=== PATIENT | female | born 1935 | race Caucasian/White ===

== ENCOUNTER 2018-08-24 21:17 | Emergency (ER) | payer MEDICARE, OTHER ==
[2018-08-24] MEDS: KETOROLAC 15 MG INJ IV (22:06)
[2018-08-24] MEDS: SOD CHLORIDE 0.9% 500 ML IV (22:06)
[2018-08-24 22:16] LABS: ADD MAN DIFF? NO
[2018-08-24 22:17] LABS: WHITE BLOOD COUNT 8.1 10^3/ul (4.8-10.8)
[2018-08-24 22:17] LABS: BASOPHIL # 0.1 10^3/ul (0.0-0.1); BASOPHILS % 0.6 % (0.0-2.0); EOSINOPHILS % 0.5 % (0.0-7.0); HEMATOCRIT 33.5 % (37.0-47.0); HEMOGLOBIN 10.6 g/dl (12.0-16.0); LYMPHOCYTES # 0.8 10^3/ul (0.8-2.9); LYMPHOCYTES % 10.1 % (15.0-51.0); MEAN CORPUSCULAR HEMOGLOBIN 26.6 pg (29.0-33.0); MEAN CORPUSCULAR HGB CONC 31.6 g/dl (32.0-37.0); MEAN CORPUSCULAR VOLUME 84.2 fl (82.0-101.0); MEAN PLATELET VOLUME 10.1 fl (7.4-10.4); MONOCYTE # 0.8 10^3/ul (0.3-0.9); MONOCYTES % 9.8 % (0.0-11.0); NEUTROPHIL # 6.4 10^3/ul (1.6-7.5); NEUTROPHILS % 78.8 % (39.0-77.0); PLATELET COUNT 173 10^3/UL (140-415); RED BLOOD COUNT 3.98 10^6/ul (4.20-5.40); RED CELL DISTRIBUTION WIDTH 14.1 % (11.5-14.5)
[2018-08-24 22:33] LABS: ANION GAP 6 (5-13); BLOOD UREA NITROGEN 25 mg/dl (7-20); CALCIUM 8.7 mg/dl (8.4-10.2); CARBON DIOXIDE 25 mmol/L (21-31); CHLORIDE 98 mmol/L (97-110); CREATININE 1.33 mg/dl (0.44-1.00); GLUCOSE 98 mg/dl (70-220); POTASSIUM 5.7 mmol/L (3.5-5.1); SODIUM 129 mmol/L (135-144)
[2018-08-24] MEDS: FENTAnyl 50 MCG/ML VIAL IV (22:45)
[2018-08-25] MEDS: FENTAnyl 50 MCG/ML VIAL IV (01:32)
[2018-08-25] MEDS: MINERAL OIL 133 ML ENEMA PR (01:32)
== END 2018-08-25 01:55 | disposition home or self-care (01) ==
LOC: E/R 08-25 01:55
DX: R25.2 Cramp and spasm (principal); M79.605 Pain in left leg; E86.0 Dehydration; K59.00 Constipation, unspecified; E87.1 Hypo-osmolality and hyponatremia; E87.5 Hyperkalemia; N17.9 Acute kidney failure, unspecified; I10 Essential (primary) hypertension; Z79.82 Long term (current) use of aspirin
CPT/HCPCS: 36415; 74018; 80048; 85025; 96374; 96375; 96376; 99284-25

== ENCOUNTER 2018-09-30 10:46 | Inpatient (IN) | payer MEDICARE, OTHER ==
[2018-09-30 11:09] LABS: ADD MAN DIFF? NO
[2018-09-30 11:10] LABS: BASOPHIL # 0.1 10^3/ul (0.0-0.1); BASOPHILS % 0.4 % (0.0-2.0); EOSINOPHILS # 0.1 10^3/ul (0.0-0.5); EOSINOPHILS % 0.4 % (0.0-7.0); HEMATOCRIT 39.4 % (37.0-47.0); HEMOGLOBIN 12.7 g/dl (12.0-16.0); LYMPHOCYTES # 2.1 10^3/ul (0.8-2.9); LYMPHOCYTES % 11.6 % (15.0-51.0); MEAN CORPUSCULAR HEMOGLOBIN 26.3 pg (29.0-33.0); MEAN CORPUSCULAR HGB CONC 32.2 g/dl (32.0-37.0); MEAN CORPUSCULAR VOLUME 81.7 fl (82.0-101.0); MEAN PLATELET VOLUME 9.7 fl (7.4-10.4); MONOCYTE # 0.8 10^3/ul (0.3-0.9); MONOCYTES % 4.7 % (0.0-11.0); NEUTROPHIL # 14.8 10^3/ul (1.6-7.5); NEUTROPHILS % 82.1 % (39.0-77.0); PLATELET COUNT 291 10^3/UL (140-415); RED BLOOD COUNT 4.82 10^6/ul (4.20-5.40); RED CELL DISTRIBUTION WIDTH 13.6 % (11.5-14.5)
[2018-09-30 11:10] LABS: WHITE BLOOD COUNT 18.1 10^3/ul (4.8-10.8)
[2018-09-30] MEDS: morphine 4 MG/ML VIAL IV (11:10)
[2018-09-30] MEDS: ONDANSETRON 4 MG INJ IV (11:10)
[2018-09-30 11:28] LABS: ALANINE AMINOTRANSFERASE 13 IU/L (13-69); ALBUMIN 4.6 g/dl (3.3-4.9); ALBUMIN/GLOBULIN RATIO 1.35; ALKALINE PHOSPHATASE 69 IU/L (42-121); ANION GAP 16 (5-13); ASPARTATE AMINO TRANSFERASE 23 IU/L (15-46); BILIRUBIN,INDIRECT 0.6 mg/dl (0-1.1); BILIRUBIN,TOTAL 0.6 mg/dl (0.2-1.3); BLOOD UREA NITROGEN 18 mg/dl (7-20); CALCIUM 9.7 mg/dl (8.4-10.2); CARBON DIOXIDE 20 mmol/L (21-31); CHLORIDE 103 mmol/L (97-110); CREATININE 0.79 mg/dl (0.44-1.00); GLUCOSE 179 mg/dl (70-220); LIPASE 97 U/L (23-300); POTASSIUM 3.8 mmol/L (3.5-5.1); SODIUM 139 mmol/L (135-144)
[2018-09-30 11:40] LABS: TROPONIN-I < 0.012 ng/ml (0.000-0.120)
[2018-09-30 12:38] LABS: URINE BLOOD (Dip) POC 1+ (NEGATIVE); URINE GLUCOSE (Dip) POC Negative (NEGATIVE); URINE KETONES (Dip) POC Trace (NEGATIVE); URINE LEUKOCYTE EST (Dip) POC 3+ (NEGATIVE); URINE NITRITE (Dip) POC Positive (NEGATIVE); URINE TOTAL PROTEIN POC 1+ (NEGATIVE)
[2018-09-30 13:06] LABS: ADD UMIC YES; UR ASCORBIC ACID NEGATIVE (NEGATIVE); UR BACTERIA FEW /HPF (NONE SEEN); UR BILIRUBIN (Dip) NEGATIVE (NEGATIVE); UR BLOOD (Dip) 1+ mg/dL (NEGATIVE); UR CLARITY SLIGHTLY CLOUDY (CLEAR); UR COLOR AMBER (YELLOW); UR GLUCOSE (Dip) NEGATIVE (NEGATIVE); UR KETONES (Dip) TRACE mg/dL (NEGATIVE); UR LEUKOCYTE ESTERASE (Dip) 3+ Leu/ul (NEGATIVE); UR NITRITE (Dip) POSITIVE (NEGATIVE); UR RBC 1 /HPF (0-5); UR SPECIFIC GRAVITY (Dip) 1.008 (1.003-1.030); UR TOTAL PROTEIN (Dip) 1+ mg/dl (NEGATIVE); UR UROBILINOGEN (Dip) 2+ mg/dL (NEGATIVE); UR WBC > 182 /HPF (0-5)
[2018-09-30] MEDS: PIPER-TAZO 3.375 GM IV (PMX) 100 ML IVPB (13:06)
[2018-09-30] MEDS: NA PHOSPHATE/BIPHOS 133 ML ENEMA PR (13:40)
[2018-09-30] MEDS: BISACODYL 10 MG SUPP PR (13:40)
[2018-09-30] MEDS ORDERED: NA PHOSPHATE/BIPHOS 133 ML ENEMA PR (14:30)
[2018-09-30] MEDS ORDERED: MAGNESIUM HYDROXIDE 30ML CUP PO (14:30)
[2018-09-30] MEDS ORDERED: BISACODYL 10 MG SUPP PR (14:30)
[2018-09-30] MEDS ORDERED: NACL 0.9% 3 ML SYG IV (14:30)
[2018-09-30] MEDS ORDERED: ACETAMINOPHEN 325 MG TAB PO (14:30)
[2018-09-30] MEDS ORDERED: ONDANSETRON 4 MG INJ IV (14:30)
[2018-09-30] MEDS: LINEZOLID 600 MG/D5W (PMX) 300 ML IVPB ×2 (15:30→23:00)
[2018-09-30] MEDS: SENNA/DOCUSATE NA (8.6MG/50MG) TAB PO ×2 (15:30→20:33)
[2018-09-30] MEDS: traMADol 50 MG TAB PO (20:37)
[2018-09-30] MEDS: FOSFOMYCIN 3 GM PACKET PO (21:50)
[2018-10-01 05:35] LABS: ADD MAN DIFF? NO
[2018-10-01 05:39] LABS: BASOPHIL # 0.1 10^3/ul (0.0-0.1); BASOPHILS % 0.3 % (0.0-2.0); HEMATOCRIT 37.5 % (37.0-47.0); HEMOGLOBIN 11.7 g/dl (12.0-16.0); LYMPHOCYTES # 1.2 10^3/ul (0.8-2.9); LYMPHOCYTES % 5.8 % (15.0-51.0); MEAN CORPUSCULAR HEMOGLOBIN 26.4 pg (29.0-33.0); MEAN CORPUSCULAR HGB CONC 31.2 g/dl (32.0-37.0); MEAN CORPUSCULAR VOLUME 84.5 fl (82.0-101.0); MEAN PLATELET VOLUME 10.1 fl (7.4-10.4); MONOCYTE # 0.7 10^3/ul (0.3-0.9); MONOCYTES % 3.4 % (0.0-11.0); NEUTROPHILS % 89.1 % (39.0-77.0); PLATELET COUNT 225 10^3/UL (140-415); RED BLOOD COUNT 4.44 10^6/ul (4.20-5.40); RED CELL DISTRIBUTION WIDTH 13.9 % (11.5-14.5)
[2018-10-01 05:39] LABS: WHITE BLOOD COUNT 20.2 10^3/ul (4.8-10.8)
[2018-10-01 06:20] LABS: ANION GAP 13 (5-13); BLOOD UREA NITROGEN 22 mg/dl (7-20); CARBON DIOXIDE 22 mmol/L (21-31); CHLORIDE 102 mmol/L (97-110); CREATININE 0.95 mg/dl (0.44-1.00); GLUCOSE 127 mg/dl (70-220); MAGNESIUM 1.6 mg/dl (1.7-2.5); POTASSIUM 3.1 mmol/L (3.5-5.1); SODIUM 137 mmol/L (135-144)
[2018-10-01] MEDS: PANTOPRAZOLE (EC) 40 MG TAB PO (06:29)
[2018-10-01] MEDS: SENNA/DOCUSATE NA (8.6MG/50MG) TAB PO ×2 (09:00→20:22)
[2018-10-01] MEDS: OXYBUTYNIN (XL) 5 MG TAB PO (09:18)
[2018-10-01] MEDS: DULOXETINE 30 MG CAP DR PO (09:18)
[2018-10-01] MEDS: FOLIC ACID 1 MG TAB PO (09:19)
[2018-10-01] MEDS: CARvedilol (CR) 10 MG CAP PO (09:19)
[2018-10-01] MEDS: BENAZEPRIL 10 MG TAB PO (09:19)
[2018-10-01] MEDS: NIFEdipine (XL) 60 MG TAB PO (09:20)
[2018-10-01] MEDS: LINEZOLID 600 MG/D5W (PMX) 300 ML IVPB (09:20)
[2018-10-01] MEDS: ENOXAPARIN 40 MG/0.4 ML SYG SC (09:21)
[2018-10-01] MEDS: POTASSIUM CHLORIDE (SR) 20 MEQ TAB PO ×2 (10:19→10:25)
[2018-10-01] MEDS: POTASSIUM CHLORIDE 20 MEQ POWDER FOR ORAL SOLN PO ×2 (10:38→15:15)
[2018-10-01] MEDS: MAGNESIUM SULFATE 2 GM/50 ML 50 ML IVPB (11:25)
[2018-10-01] MEDS: SOD CHLORIDE 0.9% 1,000 ML IV (13:39)
[2018-10-01] MEDS ORDERED: POTASSIUM CHLORIDE (SR) 20 MEQ TAB PO (14:00)
[2018-10-01] MEDS: PHENAZOPYRIDINE 100 MG TAB PO ×2 (15:14→20:22)
[2018-10-01] MEDS: CEFTRIAXONE 1 GM/50 ML (PMX) 50 ML IVPB (15:25)
[2018-10-01] MEDS: traMADol 50 MG TAB PO (20:23)
[2018-10-02] MEDS: traMADol 50 MG TAB PO (02:12)
[2018-10-02] MEDS: PANTOPRAZOLE (EC) 40 MG TAB PO (06:15)
[2018-10-02] MEDS: NIFEdipine (XL) 60 MG TAB PO (08:47)
[2018-10-02] MEDS: BENAZEPRIL 10 MG TAB PO (08:47)
[2018-10-02] MEDS: CARvedilol (CR) 10 MG CAP PO (08:47)
[2018-10-02] MEDS ORDERED: CARvedilol (CR) 10 MG CAP PO (09:00)
[2018-10-02] MEDS: PHENAZOPYRIDINE 100 MG TAB PO ×3 (09:21→21:33)
[2018-10-02] MEDS: OXYBUTYNIN (XL) 5 MG TAB PO (09:21)
[2018-10-02] MEDS: FOLIC ACID 1 MG TAB PO (09:21)
[2018-10-02] MEDS: DULOXETINE 30 MG CAP DR PO (09:21)
[2018-10-02] MEDS: MULTIVITAMINS THERAPEUTIC TAB PO (09:21)
[2018-10-02] MEDS: SENNA/DOCUSATE NA (8.6MG/50MG) TAB PO ×2 (09:21→21:33)
[2018-10-02] MEDS: ENOXAPARIN 40 MG/0.4 ML SYG SC (09:22)
[2018-10-02 11:14] LABS: ADD MAN DIFF? NO
[2018-10-02 11:21] LABS: WHITE BLOOD COUNT 13.8 10^3/ul (4.8-10.8)
[2018-10-02 11:21] LABS: BASOPHIL # 0.1 10^3/ul (0.0-0.1); BASOPHILS % 0.4 % (0.0-2.0); EOSINOPHILS # 0.1 10^3/ul (0.0-0.5); EOSINOPHILS % 0.8 % (0.0-7.0); HEMATOCRIT 30.5 % (37.0-47.0); HEMOGLOBIN 9.4 g/dl (12.0-16.0); LYMPHOCYTES # 1.1 10^3/ul (0.8-2.9); MEAN CORPUSCULAR HEMOGLOBIN 26.4 pg (29.0-33.0); MEAN CORPUSCULAR HGB CONC 30.8 g/dl (32.0-37.0); MEAN CORPUSCULAR VOLUME 85.7 fl (82.0-101.0); MEAN PLATELET VOLUME 10.5 fl (7.4-10.4); MONOCYTE # 0.3 10^3/ul (0.3-0.9); MONOCYTES % 2.1 % (0.0-11.0); NEUTROPHIL # 12.1 10^3/ul (1.6-7.5); NEUTROPHILS % 87.7 % (39.0-77.0); PLATELET COUNT 194 10^3/UL (140-415); RED BLOOD COUNT 3.56 10^6/ul (4.20-5.40); RED CELL DISTRIBUTION WIDTH 14.4 % (11.5-14.5)
[2018-10-02 11:48] LABS: MAGNESIUM 2.8 mg/dl (1.7-2.5)
[2018-10-02 11:48] LABS: ALBUMIN 2.8 g/dl (3.3-4.9); ANION GAP 9 (5-13); BLOOD UREA NITROGEN 24 mg/dl (7-20); CALCIUM 7.2 mg/dl (8.4-10.2); CARBON DIOXIDE 18 mmol/L (21-31); CHLORIDE 108 mmol/L (97-110); CREATININE 0.97 mg/dl (0.44-1.00); GLUCOSE 113 mg/dl (70-220); PHOSPHORUS 1.2 mg/dl (2.5-4.9); POTASSIUM 3.7 mmol/L (3.5-5.1); SODIUM 135 mmol/L (135-144)
[2018-10-02] MEDS: CEFTRIAXONE 1 GM/50 ML (PMX) 50 ML IVPB (15:23)
[2018-10-02] MEDS: POTASSIUM PHOSPHATE 20 MEQ in SOD CHLORIDE 0.9% 250 ML IVPB (17:22)
[2018-10-02] MEDS: TAMSULOSIN (SR) 0.4 MG CAP PO (21:33)
[2018-10-03] MEDS: PANTOPRAZOLE (EC) 40 MG TAB PO (06:00)
[2018-10-03] MEDS: DULOXETINE 30 MG CAP DR PO (09:13)
[2018-10-03] MEDS: TAMSULOSIN (SR) 0.4 MG CAP PO ×2 (09:14→21:05)
[2018-10-03] MEDS: CARvedilol (CR) 10 MG CAP PO (09:15)
[2018-10-03] MEDS: SENNA/DOCUSATE NA (8.6MG/50MG) TAB PO ×2 (09:15→21:05)
[2018-10-03] MEDS: NIFEdipine (XL) 60 MG TAB PO (09:15)
[2018-10-03] MEDS: PHENAZOPYRIDINE 100 MG TAB PO ×3 (09:15→21:05)
[2018-10-03] MEDS: FOLIC ACID 1 MG TAB PO (09:15)
[2018-10-03] MEDS: OXYBUTYNIN (XL) 5 MG TAB PO (09:15)
[2018-10-03] MEDS: MULTIVITAMINS THERAPEUTIC TAB PO (09:15)
[2018-10-03] MEDS: ENOXAPARIN 40 MG/0.4 ML SYG SC (09:17)
[2018-10-03 11:28] LABS: ADD MAN DIFF? NO
[2018-10-03 11:32] LABS: BASOPHILS % 0.4 % (0.0-2.0); EOSINOPHILS # 0.1 10^3/ul (0.0-0.5); EOSINOPHILS % 1.2 % (0.0-7.0); HEMATOCRIT 31.9 % (37.0-47.0); LYMPHOCYTES # 0.9 10^3/ul (0.8-2.9); MEAN CORPUSCULAR HEMOGLOBIN 26.3 pg (29.0-33.0); MEAN CORPUSCULAR HGB CONC 31.3 g/dl (32.0-37.0); MEAN CORPUSCULAR VOLUME 83.9 fl (82.0-101.0); MEAN PLATELET VOLUME 9.7 fl (7.4-10.4); MONOCYTE # 0.3 10^3/ul (0.3-0.9); MONOCYTES % 3.7 % (0.0-11.0); NEUTROPHIL # 6.1 10^3/ul (1.6-7.5); PLATELET COUNT 196 10^3/UL (140-415); RED CELL DISTRIBUTION WIDTH 14.3 % (11.5-14.5)
[2018-10-03 11:32] LABS: WHITE BLOOD COUNT 7.5 10^3/ul (4.8-10.8)
[2018-10-03 11:47] LABS: ALBUMIN 2.9 g/dl (3.3-4.9); ANION GAP 5 (5-13); BLOOD UREA NITROGEN 12 mg/dl (7-20); CALCIUM 7.4 mg/dl (8.4-10.2); CARBON DIOXIDE 21 mmol/L (21-31); CHLORIDE 110 mmol/L (97-110); CREATININE 0.61 mg/dl (0.44-1.00); GLUCOSE 145 mg/dl (70-220); MAGNESIUM 2.5 mg/dl (1.7-2.5); PHOSPHORUS 1.7 mg/dl (2.5-4.9); POTASSIUM 4.1 mmol/L (3.5-5.1); SODIUM 136 mmol/L (135-144)
[2018-10-03] MEDS: CEFTRIAXONE 1 GM/50 ML (PMX) 50 ML IVPB (15:48)
[2018-10-04] MEDS: AL HYDROX/MG HYDROX/SIMETH 30 ML CUP PO (01:43)
[2018-10-04 05:39] LABS: ADD MAN DIFF? NO
[2018-10-04 05:49] LABS: WHITE BLOOD COUNT 7.3 10^3/ul (4.8-10.8)
[2018-10-04 05:49] LABS: BASOPHILS % 0.6 % (0.0-2.0); EOSINOPHILS # 0.1 10^3/ul (0.0-0.5); EOSINOPHILS % 1.7 % (0.0-7.0); HEMATOCRIT 33.6 % (37.0-47.0); HEMOGLOBIN 10.8 g/dl (12.0-16.0); LYMPHOCYTES # 1.3 10^3/ul (0.8-2.9); LYMPHOCYTES % 17.9 % (15.0-51.0); MEAN CORPUSCULAR HEMOGLOBIN 26.2 pg (29.0-33.0); MEAN CORPUSCULAR HGB CONC 32.1 g/dl (32.0-37.0); MEAN CORPUSCULAR VOLUME 81.6 fl (82.0-101.0); MEAN PLATELET VOLUME 10.1 fl (7.4-10.4); MONOCYTE # 0.4 10^3/ul (0.3-0.9); NEUTROPHIL # 5.4 10^3/ul (1.6-7.5); PLATELET COUNT 240 10^3/UL (140-415); RED BLOOD COUNT 4.12 10^6/ul (4.20-5.40)
[2018-10-04] MEDS: PANTOPRAZOLE (EC) 40 MG TAB PO (06:27)
[2018-10-04 06:28] LABS: ALBUMIN 3.2 g/dl (3.3-4.9); ANION GAP 8 (5-13); BLOOD UREA NITROGEN 8 mg/dl (7-20); CARBON DIOXIDE 23 mmol/L (21-31); CHLORIDE 106 mmol/L (97-110); CREATININE 0.55 mg/dl (0.44-1.00); GLUCOSE 111 mg/dl (70-220); MAGNESIUM 2.3 mg/dl (1.7-2.5); PHOSPHORUS 1.7 mg/dl (2.5-4.9); POTASSIUM 4.1 mmol/L (3.5-5.1); SODIUM 137 mmol/L (135-144)
[2018-10-04] MEDS: SENNA/DOCUSATE NA (8.6MG/50MG) TAB PO (09:19)
[2018-10-04] MEDS: TAMSULOSIN (SR) 0.4 MG CAP PO (09:19)
[2018-10-04] MEDS: FOLIC ACID 1 MG TAB PO (09:19)
[2018-10-04] MEDS: DULOXETINE 30 MG CAP DR PO (09:19)
[2018-10-04] MEDS: PHENAZOPYRIDINE 100 MG TAB PO ×2 (09:19→12:29)
[2018-10-04] MEDS: MULTIVITAMINS THERAPEUTIC TAB PO (09:19)
[2018-10-04] MEDS: OXYBUTYNIN (XL) 5 MG TAB PO (09:19)
[2018-10-04] MEDS: NIFEdipine (XL) 60 MG TAB PO (09:19)
[2018-10-04] MEDS: CARvedilol (CR) 10 MG CAP PO (09:20)
[2018-10-04] MEDS: ENOXAPARIN 40 MG/0.4 ML SYG SC (09:22)
[2018-10-04] MEDS: NEUTRA-PHOS 250 MG PACKET PO (10:41)
[2018-10-04] MEDS: CEFTRIAXONE 1 GM/50 ML (PMX) 50 ML IVPB (15:48)
== END 2018-10-04 18:10 | disposition home health service (06) | DRG 690 ==
LOC: E/R 10:46 → PP2 12:56
DX: N39.0 Urinary tract infection, site not specified (principal); B95.1 Streptococcus, group B, as the cause of diseases classified elsewhere; D64.9 Anemia, unspecified; K59.09 Other constipation; R33.9 Retention of urine, unspecified; I10 Essential (primary) hypertension; Z16.21 Resistance to vancomycin; M19.90 Unspecified osteoarthritis, unspecified site; E78.5 Hyperlipidemia, unspecified; K21.9 Gastro-esophageal reflux disease without esophagitis; Z79.82 Long term (current) use of aspirin
CPT/HCPCS: 36415; 74018; 74176; 80048; 80053; 80069; 81001; 81003; 83690; 83735; 84484; 85025; 87086; 93005; 96374; 96375; 97110; 97116; 97162; 97165; 97530; 99285-25

== ENCOUNTER 2019-01-27 15:03 | Emergency (ER) | payer MEDICARE, OTHER ==
[2019-01-27 17:15] LABS: ADD MAN DIFF? NO
[2019-01-27 17:20] LABS: BASOPHILS % 0.5 % (0.0-2.0); EOSINOPHILS # 0.1 10^3/ul (0.0-0.5); HEMATOCRIT 30.3 % (37.0-47.0); HEMOGLOBIN 9.2 g/dl (12.0-16.0); LYMPHOCYTES # 1.4 10^3/ul (0.8-2.9); LYMPHOCYTES % 23.7 % (15.0-51.0); MEAN CORPUSCULAR HEMOGLOBIN 24.1 pg (29.0-33.0); MEAN CORPUSCULAR HGB CONC 30.4 g/dl (32.0-37.0); MEAN CORPUSCULAR VOLUME 79.5 fl (82.0-101.0); MONOCYTE # 0.5 10^3/ul (0.3-0.9); MONOCYTES % 8.5 % (0.0-11.0); NEUTROPHIL # 3.8 10^3/ul (1.6-7.5); NEUTROPHILS % 65.1 % (39.0-77.0); PLATELET COUNT 218 10^3/UL (140-415); RED BLOOD COUNT 3.81 10^6/ul (4.20-5.40)
[2019-01-27 17:20] LABS: WHITE BLOOD COUNT 5.9 10^3/ul (4.8-10.8)
[2019-01-27 17:40] LABS: INR 0.93; PROTIME 12.6 Sec (11.9-14.9)
[2019-01-27 17:41] LABS: PARTIAL THROMBOPLASTIN TIME 33.1 Sec (23.0-35.0)
[2019-01-27 17:43] LABS: ALANINE AMINOTRANSFERASE 14 IU/L (13-69); ALBUMIN 3.7 g/dl (3.3-4.9); ALBUMIN/GLOBULIN RATIO 1.19; ALKALINE PHOSPHATASE 53 IU/L (42-121); ANION GAP 9 (5-13); ASPARTATE AMINO TRANSFERASE 19 IU/L (15-46); BILIRUBIN,INDIRECT 0.4 mg/dl (0-1.1); BILIRUBIN,TOTAL 0.4 mg/dl (0.2-1.3); BLOOD UREA NITROGEN 20 mg/dl (7-20); CARBON DIOXIDE 24 mmol/L (21-31); CHLORIDE 109 mmol/L (97-110); CREATININE 1.15 mg/dl (0.44-1.00); GLUCOSE 111 mg/dl (70-220); POTASSIUM 4.7 mmol/L (3.5-5.1); SODIUM 142 mmol/L (135-144); TOTAL PROTEIN 6.8 g/dl (6.1-8.1)
[2019-01-27 19:17] LABS: ADD UMIC YES; UR ASCORBIC ACID NEGATIVE (NEGATIVE); UR BACTERIA MODERATE /HPF (NONE SEEN); UR BILIRUBIN (Dip) NEGATIVE (NEGATIVE); UR BLOOD (Dip) 1+ mg/dL (NEGATIVE); UR CLARITY CLOUDY (CLEAR); UR COLOR AMBER (YELLOW); UR GLUCOSE (Dip) NEGATIVE (NEGATIVE); UR KETONES (Dip) NEGATIVE (NEGATIVE); UR LEUKOCYTE ESTERASE (Dip) 3+ Leu/ul (NEGATIVE); UR NITRITE (Dip) NEGATIVE (NEGATIVE); UR RBC 11 /HPF (0-5); UR SPECIFIC GRAVITY (Dip) 1.008 (1.003-1.030); UR SQUAMOUS EPITHELIAL CELL MODERATE /HPF (FEW); UR TOTAL PROTEIN (Dip) 1+ mg/dl (NEGATIVE); UR UROBILINOGEN (Dip) NEGATIVE (NEGATIVE); UR WBC > 182 /HPF (0-5)
[2019-01-27] MEDS: CEFTRIAXONE 1 GM/50 ML (PMX) 50 ML IVPB (20:22)
== END 2019-01-27 21:27 | disposition home or self-care (01) ==
LOC: E/R 15:03
DX: K64.9 Unspecified hemorrhoids (principal); D50.9 Iron deficiency anemia, unspecified; N30.01 Acute cystitis with hematuria; I10 Essential (primary) hypertension; R10.30 Lower abdominal pain, unspecified
CPT/HCPCS: 80053; 81001; 85025; 85610; 85730; 86850; 86900; 86901; 93005; 99284-25

== ENCOUNTER 2019-02-25 10:15 | Inpatient (IN) | payer MEDICARE, OTHER ==
[2019-02-25 11:22] LABS: ADD MAN DIFF? NO
[2019-02-25 11:25] LABS: WHITE BLOOD COUNT 5.5 10^3/ul (4.8-10.8)
[2019-02-25 11:25] LABS: BASOPHILS % 0.7 % (0.0-2.0); EOSINOPHILS # 0.2 10^3/ul (0.0-0.5); EOSINOPHILS % 2.9 % (0.0-7.0); HEMATOCRIT 27.7 % (37.0-47.0); HEMOGLOBIN 8.4 g/dl (12.0-16.0); LYMPHOCYTES # 1.2 10^3/ul (0.8-2.9); LYMPHOCYTES % 21.4 % (15.0-51.0); MEAN CORPUSCULAR HEMOGLOBIN 24.5 pg (29.0-33.0); MEAN CORPUSCULAR HGB CONC 30.3 g/dl (32.0-37.0); MEAN CORPUSCULAR VOLUME 80.8 fl (82.0-101.0); MEAN PLATELET VOLUME 10.1 fl (7.4-10.4); MONOCYTE # 0.5 10^3/ul (0.3-0.9); MONOCYTES % 9.5 % (0.0-11.0); NEUTROPHIL # 3.6 10^3/ul (1.6-7.5); NEUTROPHILS % 65.3 % (39.0-77.0); PLATELET COUNT 142 10^3/UL (140-415); RED BLOOD COUNT 3.43 10^6/ul (4.20-5.40); RED CELL DISTRIBUTION WIDTH 16.7 % (11.5-14.5)
[2019-02-25 11:43] LABS: ALANINE AMINOTRANSFERASE 12 IU/L (13-69); ALBUMIN 3.2 g/dl (3.3-4.9); ALKALINE PHOSPHATASE 39 IU/L (42-121); ANION GAP 7 (5-13); ASPARTATE AMINO TRANSFERASE 17 IU/L (15-46); BILIRUBIN,INDIRECT 0.4 mg/dl (0-1.1); BILIRUBIN,TOTAL 0.4 mg/dl (0.2-1.3); BLOOD UREA NITROGEN 29 mg/dl (7-20); CALCIUM 9.4 mg/dl (8.4-10.2); CARBON DIOXIDE 26 mmol/L (21-31); CHLORIDE 107 mmol/L (97-110); CREATININE 1.27 mg/dl (0.44-1.00); GLUCOSE 101 mg/dl (70-220); POTASSIUM 4.3 mmol/L (3.5-5.1); SODIUM 140 mmol/L (135-144); TOTAL PROTEIN 6.1 g/dl (6.1-8.1)
[2019-02-25 11:45] LABS: INR 0.98; PROTIME 13.1 Sec (11.9-14.9)
[2019-02-25 11:46] LABS: PARTIAL THROMBOPLASTIN TIME 32.1 Sec (23.0-35.0)
[2019-02-25 11:55] LABS: TROPONIN-I < 0.012 ng/ml (0.000-0.120)
[2019-02-25 12:58] LABS: IMMEDIATE SPIN CROSSMATCH 1 1
[2019-02-25] MEDS: SOD CHLORIDE 0.9% 1,000 ML IV ×2 (13:59→21:17)
[2019-02-25] MEDS ORDERED: ONDANSETRON 4 MG INJ IV (14:00)
[2019-02-25] MEDS ORDERED: ACETAMINOPHEN 325 MG TAB PO ×2 (14:00→16:00)
[2019-02-25] MEDS ORDERED: NACL 0.9% 3 ML SYG IV (15:30)
[2019-02-25] MEDS ORDERED: MAGNESIUM HYDROXIDE 30ML CUP PO (15:30)
[2019-02-25] MEDS ORDERED: HYDROCODONE/APAP (5/325) TAB PO (15:30)
[2019-02-25] MEDS ORDERED: morphine 2 MG INJ IV (15:30)
[2019-02-25] MEDS: PANTOPRAZOLE IV 80 MG in SOD CHLORIDE 0.9% 100 ML IV (15:31)
[2019-02-25] MEDS: PANTOPRAZOLE IV 80 MG in SOD CHLORIDE 0.9% 100 ML IVPB (15:31)
[2019-02-25] MEDS: HARD FAT/PHENYLEPHRINE SUPP PR (21:00)
[2019-02-25] MEDS ORDERED: HARD FAT/PHENYLEPHRINE SUPP PR (21:00)
[2019-02-25] MEDS: OXYBUTYNIN 5 MG TAB PO (21:00)
[2019-02-25] MEDS: BACLOFEN 10 MG TAB PO (21:17)
[2019-02-25] MEDS: POLYETHYLENE GLYCOL 17 GM PACKET PO (21:17)
[2019-02-25] MEDS: traMADol 50 MG TAB PO (23:39)
[2019-02-26] MEDS: hydrALAzine 20 MG INJ IV ×2 (02:35→19:16)
[2019-02-26] MEDS: SOD CHLORIDE 0.9% 1,000 ML IV ×3 (03:54→16:24)
[2019-02-26] MEDS: PANTOPRAZOLE 40 MG INJ IV (05:31)
[2019-02-26 05:37] LABS: ADD MAN DIFF? NO
[2019-02-26 05:45] LABS: WHITE BLOOD COUNT 5.6 10^3/ul (4.8-10.8)
[2019-02-26 05:45] LABS: BASOPHILS % 0.5 % (0.0-2.0); EOSINOPHILS # 0.1 10^3/ul (0.0-0.5); EOSINOPHILS % 2.5 % (0.0-7.0); HEMOGLOBIN 10.3 g/dl (12.0-16.0); LYMPHOCYTES # 1.4 10^3/ul (0.8-2.9); LYMPHOCYTES % 25.4 % (15.0-51.0); MEAN CORPUSCULAR HEMOGLOBIN 25.3 pg (29.0-33.0); MEAN CORPUSCULAR HGB CONC 31.2 g/dl (32.0-37.0); MEAN CORPUSCULAR VOLUME 81.1 fl (82.0-101.0); MONOCYTE # 0.4 10^3/ul (0.3-0.9); MONOCYTES % 7.7 % (0.0-11.0); NEUTROPHIL # 3.6 10^3/ul (1.6-7.5); NEUTROPHILS % 63.7 % (39.0-77.0); PLATELET COUNT 153 10^3/UL (140-415); RED BLOOD COUNT 4.07 10^6/ul (4.20-5.40); RED CELL DISTRIBUTION WIDTH 17.1 % (11.5-14.5)
[2019-02-26] MEDS ORDERED: PANTOPRAZOLE (EC) 40 MG TAB PO (06:00)
[2019-02-26 06:08] LABS: ALANINE AMINOTRANSFERASE 19 IU/L (13-69); ALBUMIN/GLOBULIN RATIO 1.07; ALKALINE PHOSPHATASE 42 IU/L (42-121); ANION GAP 6 (5-13); ASPARTATE AMINO TRANSFERASE 21 IU/L (15-46); BILIRUBIN,INDIRECT 0.8 mg/dl (0-1.1); BILIRUBIN,TOTAL 0.8 mg/dl (0.2-1.3); BLOOD UREA NITROGEN 19 mg/dl (7-20); CALCIUM 9.2 mg/dl (8.4-10.2); CARBON DIOXIDE 24 mmol/L (21-31); CHLORIDE 112 mmol/L (97-110); CHOL/HDL RATIO 4.1 RATIO; CHOLESTEROL 161 mg/dl (100-200); CREATININE 0.86 mg/dl (0.44-1.00); GLUCOSE 77 mg/dl (70-220); HDL CHOLESTEROL 39 mg/dl (33-92); LDL CHOLESTEROL,CALCULATED 104 mg/dl; MAGNESIUM 1.7 mg/dl (1.7-2.5); PHOSPHORUS 3.7 mg/dl (2.5-4.9); POTASSIUM 4.1 mmol/L (3.5-5.1); SODIUM 142 mmol/L (135-144); TOTAL PROTEIN 5.8 g/dl (6.1-8.1); TRIGLYCERIDES 92 mg/dl (0-149)
[2019-02-26 06:15] LABS: FREE THYROXINE INDEX (Calc) 2.79 ug/ml (0.65-3.89); T3 UPTAKE 39.9 % (23.5-40.5)
[2019-02-26 07:05] LABS: HEMOGLOBIN A1C 5.4 % (0-5.9)
[2019-02-26] MEDS ORDERED: NON-FORMULARY/PATIENT OWN MED (Linaclotide (Linzess) 145 MCG) PO (09:00)
[2019-02-26] MEDS: HARD FAT/PHENYLEPHRINE SUPP PR ×3 (09:00→22:08)
[2019-02-26] MEDS ORDERED: LACTULOSE 30ML CUP PO (09:30)
[2019-02-26] MEDS: POLYETHYLENE GLYCOL 17 GM PACKET PO ×2 (10:39→22:07)
[2019-02-26] MEDS: BISACODYL (EC) 5 MG TAB PO (10:40)
[2019-02-26] MEDS: FERROUS SULFATE (EC) 325 MG TAB PO (10:42)
[2019-02-26] MEDS: SENNA/DOCUSATE NA (8.6MG/50MG) TAB PO (10:42)
[2019-02-26] MEDS: BENAZEPRIL 20 MG TAB PO (10:42)
[2019-02-26] MEDS: OXYBUTYNIN 5 MG TAB PO ×2 (10:42→22:05)
[2019-02-26] MEDS: BACLOFEN 10 MG TAB PO ×2 (10:42→22:06)
[2019-02-26] MEDS: AMLODIPINE 5 MG TAB PO ×2 (13:10→22:06)
[2019-02-26 17:14] LABS: ADD UMIC YES; UR ASCORBIC ACID NEGATIVE (NEGATIVE); UR BACTERIA MANY /HPF (NONE SEEN); UR BILIRUBIN (Dip) NEGATIVE (NEGATIVE); UR BLOOD (Dip) 1+ mg/dL (NEGATIVE); UR CLARITY TURBID (CLEAR); UR COLOR YELLOW (YELLOW); UR GLUCOSE (Dip) NEGATIVE (NEGATIVE); UR KETONES (Dip) NEGATIVE (NEGATIVE); UR LEUKOCYTE ESTERASE (Dip) 3+ Leu/ul (NEGATIVE); UR NITRITE (Dip) NEGATIVE (NEGATIVE); UR RBC 6 /HPF (0-5); UR SPECIFIC GRAVITY (Dip) 1.008 (1.003-1.030); UR SQUAMOUS EPITHELIAL CELL FEW /HPF (FEW); UR TOTAL PROTEIN (Dip) 1+ mg/dl (NEGATIVE); UR UROBILINOGEN (Dip) NEGATIVE (NEGATIVE); UR WBC > 182 /HPF (0-5)
[2019-02-26] MEDS: MAGNESIUM CITRATE 300 ML BTL PO (18:24)
[2019-02-26] MEDS: ONDANSETRON 4 MG INJ IV (21:20)
[2019-02-26] MEDS: POLYETHYLENE GLYCOL 3350 119 GM POWDER PO (22:04)
[2019-02-26] MEDS: traMADol 50 MG TAB PO (22:07)
[2019-02-27] MEDS: SOD CHLORIDE 0.9% 1,000 ML IV ×2 (02:11→15:04)
[2019-02-27] MEDS: POLYETHYLENE GLYCOL 3350 119 GM POWDER PO ×2 (06:25→18:30)
[2019-02-27] MEDS: PANTOPRAZOLE 40 MG INJ IV (06:25)
[2019-02-27] MEDS: POLYETHYLENE GLYCOL 17 GM PACKET PO ×2 (08:58→20:52)
[2019-02-27] MEDS: BENAZEPRIL 20 MG TAB PO (08:58)
[2019-02-27] MEDS: OXYBUTYNIN 5 MG TAB PO ×2 (08:58→20:50)
[2019-02-27] MEDS: FERROUS SULFATE (EC) 325 MG TAB PO (08:58)
[2019-02-27] MEDS: SENNA/DOCUSATE NA (8.6MG/50MG) TAB PO (08:59)
[2019-02-27] MEDS: BACLOFEN 10 MG TAB PO ×2 (08:59→20:52)
[2019-02-27] MEDS: BISACODYL (EC) 5 MG TAB PO ×2 (08:59→13:32)
[2019-02-27] MEDS: AMLODIPINE 5 MG TAB PO ×2 (08:59→20:52)
[2019-02-27] MEDS: HARD FAT/PHENYLEPHRINE SUPP PR ×3 (09:00→20:52)
[2019-02-27] MEDS: CIPROFLOXACIN 500 MG TAB PO ×2 (13:32→20:52)
[2019-02-27] MEDS: MAGNESIUM CITRATE 300 ML BTL PO (18:20)
[2019-02-28 05:20] LABS: ADD MAN DIFF? NO
[2019-02-28 05:22] LABS: BASOPHILS % 0.8 % (0.0-2.0); EOSINOPHILS # 0.2 10^3/ul (0.0-0.5); EOSINOPHILS % 2.9 % (0.0-7.0); HEMATOCRIT 33.8 % (37.0-47.0); HEMOGLOBIN 10.5 g/dl (12.0-16.0); LYMPHOCYTES # 1.2 10^3/ul (0.8-2.9); LYMPHOCYTES % 22.9 % (15.0-51.0); MEAN CORPUSCULAR HEMOGLOBIN 25.7 pg (29.0-33.0); MEAN CORPUSCULAR HGB CONC 31.1 g/dl (32.0-37.0); MEAN CORPUSCULAR VOLUME 82.6 fl (82.0-101.0); MEAN PLATELET VOLUME 9.7 fl (7.4-10.4); MONOCYTE # 0.5 10^3/ul (0.3-0.9); MONOCYTES % 9.4 % (0.0-11.0); NEUTROPHIL # 3.3 10^3/ul (1.6-7.5); NEUTROPHILS % 63.8 % (39.0-77.0); PLATELET COUNT 171 10^3/UL (140-415); RED BLOOD COUNT 4.09 10^6/ul (4.20-5.40); RED CELL DISTRIBUTION WIDTH 17.3 % (11.5-14.5)
[2019-02-28 05:22] LABS: WHITE BLOOD COUNT 5.1 10^3/ul (4.8-10.8)
[2019-02-28] MEDS: CIPROFLOXACIN 500 MG TAB PO ×2 (06:00→20:24)
[2019-02-28 06:22] LABS: ANION GAP 6 (5-13); BLOOD UREA NITROGEN 9 mg/dl (7-20); CARBON DIOXIDE 19 mmol/L (21-31); CHLORIDE 116 mmol/L (97-110); CREATININE 0.85 mg/dl (0.44-1.00); GLUCOSE 68 mg/dl (70-220); POTASSIUM 3.1 mmol/L (3.5-5.1); SODIUM 141 mmol/L (135-144)
[2019-02-28] MEDS: POLYETHYLENE GLYCOL 3350 119 GM POWDER PO (06:22)
[2019-02-28] MEDS: PANTOPRAZOLE 40 MG INJ IV (06:30)
[2019-02-28] MEDS: SOD CHLORIDE 0.9% 1,000 ML IV (06:30)
[2019-02-28] MEDS: BENAZEPRIL 20 MG TAB PO (08:47)
[2019-02-28] MEDS: BACLOFEN 10 MG TAB PO ×2 (08:52→20:24)
[2019-02-28] MEDS: AMLODIPINE 5 MG TAB PO ×2 (08:52→20:25)
[2019-02-28] MEDS: POLYETHYLENE GLYCOL 17 GM PACKET PO ×2 (08:52→20:25)
[2019-02-28] MEDS: OXYBUTYNIN 5 MG TAB PO ×2 (08:52→20:24)
[2019-02-28] MEDS: BISACODYL (EC) 5 MG TAB PO (08:52)
[2019-02-28] MEDS: FERROUS SULFATE (EC) 325 MG TAB PO (08:52)
[2019-02-28] MEDS: SENNA/DOCUSATE NA (8.6MG/50MG) TAB PO (08:54)
[2019-02-28] MEDS: HARD FAT/PHENYLEPHRINE SUPP PR ×3 (08:54→20:26)
[2019-02-28] MEDS: PHENYLephrine (100 MCG/ML) 10ML SYG (18:04)
[2019-02-28] MEDS: PROPOFOL 40 ML (18:04)
[2019-02-28] MEDS: POTASSIUM CHLORIDE (SR) 20 MEQ TAB PO (21:59)
[2019-03-01] MEDS: PANTOPRAZOLE 40 MG INJ IV (05:33)
[2019-03-01] MEDS: CIPROFLOXACIN 500 MG TAB PO ×2 (05:34→17:34)
[2019-03-01] MEDS: POLYETHYLENE GLYCOL 17 GM PACKET PO ×2 (09:00→09:13)
[2019-03-01] MEDS: HARD FAT/PHENYLEPHRINE SUPP PR ×2 (09:00→13:00)
[2019-03-01] MEDS: BACLOFEN 10 MG TAB PO (09:14)
[2019-03-01] MEDS: AMLODIPINE 5 MG TAB PO (09:14)
[2019-03-01] MEDS: FERROUS SULFATE (EC) 325 MG TAB PO (09:14)
[2019-03-01] MEDS: OXYBUTYNIN 5 MG TAB PO (09:15)
[2019-03-01] MEDS: BENAZEPRIL 20 MG TAB PO (09:15)
[2019-03-01] MEDS: SENNA/DOCUSATE NA (8.6MG/50MG) TAB PO (09:15)
[2019-03-01 10:15] LABS: ADD MAN DIFF? NO
[2019-03-01 10:20] LABS: WHITE BLOOD COUNT 6.4 10^3/ul (4.8-10.8)
[2019-03-01 10:20] LABS: BASOPHILS % 0.6 % (0.0-2.0); EOSINOPHILS # 0.1 10^3/ul (0.0-0.5); HEMATOCRIT 38.3 % (37.0-47.0); HEMOGLOBIN 12.1 g/dl (12.0-16.0); LYMPHOCYTES # 1.2 10^3/ul (0.8-2.9); LYMPHOCYTES % 18.3 % (15.0-51.0); MEAN CORPUSCULAR HEMOGLOBIN 25.7 pg (29.0-33.0); MEAN CORPUSCULAR HGB CONC 31.6 g/dl (32.0-37.0); MEAN CORPUSCULAR VOLUME 81.5 fl (82.0-101.0); MEAN PLATELET VOLUME 10.1 fl (7.4-10.4); MONOCYTE # 0.3 10^3/ul (0.3-0.9); MONOCYTES % 5.2 % (0.0-11.0); NEUTROPHIL # 4.7 10^3/ul (1.6-7.5); NEUTROPHILS % 73.6 % (39.0-77.0); PLATELET COUNT 217 10^3/UL (140-415); RED CELL DISTRIBUTION WIDTH 17.5 % (11.5-14.5)
[2019-03-01 10:53] LABS: MAGNESIUM 1.7 mg/dl (1.7-2.5)
[2019-03-01 10:56] LABS: BLOOD UREA NITROGEN 12 mg/dl (7-20); CREATININE 0.78 mg/dl (0.44-1.00)
[2019-03-01 12:13] LABS: ANION GAP 11 (5-13); CARBON DIOXIDE 18 mmol/L (21-31); CHLORIDE 111 mmol/L (97-110); GLUCOSE 152 mg/dl (70-220); POTASSIUM 4.2 mmol/L (3.5-5.1); SODIUM 140 mmol/L (135-144)
== END 2019-03-01 17:45 | disposition home health service (06) | DRG 378 ==
LOC: 2NE 18:55 → E/R 10:15 → 2NE 13:59
PROVIDERS: Pediatrics Neonatal-Perinatal Medicine
PROC: 30233N1 Transfusion of Nonautologous Red Blood Cells into Peripheral Vein, Percutaneous Approach (ICD-10-PCS; principal; 2019-02-28 13:20)
PROC: 0DBL8ZX Excision of Transverse Colon, Via Natural or Artificial Opening Endoscopic, Diagnostic (ICD-10-PCS; 2019-02-28 13:20)
DX: K92.2 Gastrointestinal hemorrhage, unspecified (principal); N39.0 Urinary tract infection, site not specified; D64.9 Anemia, unspecified; D12.3 Benign neoplasm of transverse colon; I10 Essential (primary) hypertension; M19.90 Unspecified osteoarthritis, unspecified site; D50.9 Iron deficiency anemia, unspecified; N28.9 Disorder of kidney and ureter, unspecified; E78.5 Hyperlipidemia, unspecified; K64.9 Unspecified hemorrhoids
CPT/HCPCS: 36415; 36430; 71045; 80048; 80053; 80061; 81001; 83036; 83735; 84100; 84436; 84443; 84479; 84484; 85025; 85610; 85730; 86850; 86900; 86901; 86920; 87086; 88305; 97161; 99285-25